=== PATIENT | female | born 1980 | race Caucasian/White ===

== ENCOUNTER 2024-03-02 10:08 | Outpatient (CLI) | payer MEDICAID, SELFPAY ==
--- NOTE | 2024-03-02 10:55 | W.ANESCHARGE ---
Anesthesia Charges Start Date/Time Anesthesia Start Date: 03/02/24 Anesthesia Start Time: 10:42 Stop Date/Time Anesthesia Stop Date: 03/02/24 Anesthesia Stop Time: 10:54
--- NOTE | 2024-03-02 11:40 | W.ANESCHARGE ---
Anesthesia Charges Start Date/Time Anesthesia Start Date: 03/02/24 Anesthesia Start Time: 10:42 Stop Date/Time Anesthesia Stop Date: 03/02/24 Anesthesia Stop Time: 10:54
== END 2024-03-02 10:09 | disposition home or self-care (01) ==
LOC: OP CLINIC 10:13
PROVIDERS: PCP Physician Assistant; Visit Provider Internal Medicine Gastroenterology
DX: Z12.11 Encounter for screening for malignant neoplasm of colon (principal)
CPT/HCPCS: 00811; 45378; J2704

== ENCOUNTER 2024-05-18 06:18 | Outpatient (CLI) | payer MEDICAID, SELFPAY ==
--- NOTE | 2024-05-18 08:05 | W.ANESCHARGE ---
Anesthesia Charges Start Date/Time Anesthesia Start Date: 05/18/24 Anesthesia Start Time: 07:30 Stop Date/Time Anesthesia Stop Date: 05/18/24 Anesthesia Stop Time: 08:06
--- NOTE | 2024-05-18 11:20 | W.ANESCHARGE ---
Anesthesia Charges Start Date/Time Anesthesia Start Date: 05/18/24 Anesthesia Start Time: 07:30 Stop Date/Time Anesthesia Stop Date: 05/18/24 Anesthesia Stop Time: 08:06
== END 2024-05-18 06:19 | disposition home or self-care (01) ==
PROVIDERS: PCP Physician Assistant; Visit Provider Internal Medicine Gastroenterology
DX: Z12.11 Encounter for screening for malignant neoplasm of colon (principal); D12.4 Benign neoplasm of descending colon; D12.5 Benign neoplasm of sigmoid colon
CPT/HCPCS: 00811; 45385; 88305; J2704